=== PATIENT | female | born 1960 | race American Indian/Alaskan Native ===

== ENCOUNTER 2017-06-07 07:35 | Outpatient (CLI) | payer BC ==
--- NOTE | 2017-06-07 13:45 | XRay Report ---
XRAY RIGHT SHOULDER THREE VIEWS: 06/07/17 07:35:00 CLINICAL: Pain. FINDINGS: Normal glenohumeral alignment. Minimal glenohumeral joint arthritis. Normal AC joint. No fracture or dislocation. No bone lesion. Normal soft tissues. IMPRESSION: Minimal glenohumeral joint arthritis and otherwise normal.
--- NOTE | 2017-06-07 13:46 | XRay Report ---
XRAY RIGHT HIP TWO VIEWS: 06/07/17 07:35:00 CLINICAL: Right hip pain. FINDINGS: No fracture or dislocation.Mild osteoarthritis with mild superior acetabular eburnation and a small superolateral osteophytes. Minimal narrowing of the superior joint space. Similar changes in the left hip. The pelvic bones are intact. The SI joints are normal. Phleboliths in the pelvis. IMPRESSION: Mild osteoarthritis.
--- NOTE | 2017-06-08 08:13 | Mammography Report ---
BILATERAL DIGITAL SCREENING MAMMOGRAM with CAD: 06/07/17 07:35:00 CLINICAL: Routine screening. COMPARISON:06/06/16 FINDINGS: The breasts are almost entirely fatty. No mass, architectural distortion or suspicious calcifications. IMPRESSION: No mammographic evidence of malignancy. BI-RADS CATEGORY: 1 - - Negative RECOMMENDATION: Routine mammographic screening in one year. COMMENT: Patient follow-up letters are generated by our [email or web address] application.
== END 2017-06-07 07:36 | disposition home or self-care (01) ==
LOC: MAMMO 07:35
PROVIDERS: ATTEND Internal Medicine
DX: Z12.31 Encounter for screening mammogram for malignant neoplasm of breast (principal); M16.11 Unilateral primary osteoarthritis, right hip; M19.011 Primary osteoarthritis, right shoulder; I87.8 Other specified disorders of veins
CPT/HCPCS: 73030; 73502; G0202; 77067

== ENCOUNTER 2019-03-13 14:05 | Outpatient (CLI) | payer BC ==
--- NOTE | 2019-03-13 16:05 | Mammography Report ---
BILATERAL DIGITAL SCREENING MAMMOGRAM WITH CAD INDICATION: Routine screening mammography. TECHNIQUE: Digital bilateral 2D mammography was obtained in the craniocaudal and mediolateral obliq ue projections. This examination was interpreted with the benefit of Computer-Aided Detection analysi s. COMPARISON: 06/07/2017 FINDINGS: Breast Density: The breasts are almost entirely fatty. No mass, architectural distortion or suspicious calcifications. IMPRESSION:No mammographic evidence of malignancy. BI-RADS Category 1: Negative. No mammographic evidence of malignancy. Recommend routine screening m ammography in one year. A "normal" or negative report should not discourage follow up or biopsy of a clinically significant f inding. A written summary of these findings will be mailed to the patient. The patient will be entered into a mammography reporting system which will generate a reminder letter for the patient's next appointmen t at the appropriate interval. The [employer] recommends yearly mammograms starting at age 40 and continuing as l eric as a woman is in good health. Breast MRI is recommended for women with an approximate 20-25% or greater lifetime risk of breast cancer, including women with a strong family history of breast or ova elise cancer or who have been treated for Hodgkin's disease. Signer Name: Dudley Sandoval MD Signed: 03/13/2019 4:00 PM Workstation Name: [id number]
== END 2019-03-13 14:06 | disposition home or self-care (01) ==
LOC: MAMMO 14:05
DX: Z12.31 Encounter for screening mammogram for malignant neoplasm of breast (principal)
CPT/HCPCS: 77067